=== PATIENT | male | born 1985 | race Caucasian/White ===

== ENCOUNTER 2017-01-11 19:28 | Emergency (ER) | payer BC ==
--- NOTE | 2017-01-11 20:05 | UC ---
Back Pain HPI - HPI Summary HPI Summary: 31 YEAR OLD MALE PRESENTS WITH LOWER BACK PAIN AFTER STEPPING IN A POT HOLE. - History of Current Complaint Stated Complaint: BACK PAIN Time Seen by Provider: 01/11/17 20:04 Hx Obtained From: Patient Onset/Duration: Sudden Onset Timing: Constant Severity Initially: Moderate Severity Currently: Moderate Pain Scale Used: 0-10 Numeric - 5 Back Pain: Is Discrete @ - LOWER BACK Character: Aching Aggravating Factor(s): Movement, Lifting, Bending - Allergies/Home Medications Allergies/Adverse Reactions: Allergies Allergy/AdvReac Type Severity Reaction Status Date / Time No Known Allergies Allergy Verified 01/11/17 20:07 Home Medications: Home Medications Ibuprofen TAB* [Motrin TAB* 600 MG] 01/11/17 [History] PMH/Surg Hx/FS Hx/Imm Hx Previously Healthy: Yes Review of Systems Constitutional: Negative Skin: Negative Eyes: Negative ENT: Negative Respiratory: Negative Cardiovascular: Negative Gastrointestinal: Negative Genitourinary: Negative Motor: Negative Neurovascular: Negative Musculoskeletal: Decreased ROM, Myalgia, Other: - LOWER BACK PAIN Neurological: Negative Psychological: Negative All Other Systems Reviewed And Are Negative: Yes Physical Exam Triage Information Reviewed: Yes Vital Signs Reviewed: Yes Eye Exam: Normal ENT Exam: Normal Dental Exam: Normal Neck exam: Normal Neck: Positive: 1 Respiratory Exam: Normal Cardiovascular Exam: Normal Abdominal Exam: Normal Musculoskeletal: Positive: Other: - LOWER BILATERAL SI JOINT PAIN Neurological Exam: Normal Psychological Exam: Normal Skin Exam: Normal Back Pain Course/Dx - Differential Dx/Diagnosis Provider Diagnoses: LOWER BILATERAL SI JOINT PAIN Discharge - Discharge Plan Condition: Stable Disposition: HOME Prescriptions: Ibuprofen TAB* [Motrin TAB* 800 MG] 800 mg PO Q6H #30 tab Methocarbamol TAB* [Robaxin 500 MG TAB*] 500 mg PO TID PRN #30 tab PRN Reason: Spasms - Back Patient Education Materials: Acute Low Back Pain (ED), Sacroiliitis (ED) Referrals: [facility] [place] Physical therapy,PT [Medical Doctor] - Additional Instructions: [facility]eral [facility] for [facility]
[2017-01-11 20:08] VITALS: BP 131/81
== END 2017-01-11 20:49 | disposition home or self-care (01) ==
LOC: UCEAST 19:28
DX: M53.3 Sacrococcygeal disorders, not elsewhere classified (principal)
CPT/HCPCS: 99202; G0463